=== PATIENT | male | born 1960 | race Caucasian/White ===

== ENCOUNTER → 2018-09-09 10:31 | Outpatient (CLI) | payer BC, OTHER, SELFPAY ==
--- NOTE | 2018-09-09 10:33 | ECHOD_ITS ---
Reason For Study: AVR Procedure This was a 2D Doppler, Color Flow transthoracic echocardiogram. Exam performed in department. Left Ventricle Normal LV size. Left ventricular systolic function is normal. The estimated ejection fraction is 58 %. Stage 1 diastolic dysfunction. No regional wall motion abnormalities noted. Right Ventricle Normal RV size. Normal systolic function. Atria Normal left atrium. Normal right atrium. Mitral Valve Normal mitral valve. Mild (1+) eccentric mitral valve insufficiency. Tricuspid Valve Normal tricuspid valve. Unable to estimate RV systolic pressure due to inadequate jet, pulmonary artery pressure probably normal. Aortic Valve Peak aortic valve gradient 21 mmHg. Mean aortic valve gradient 10 mmHg. Mild aortic stenosis. Calculated aortic valve area (continuity equation) is 1.6 cm2. Bioprosthetic aortic valve. Great Vessels Normal aortic root. The pulmonary artery is normal size. Normal inferior vena cava. Pericardium/Pleural No pericardial effusion. MMode/2D Measurements & Calculations LVIDd: 4.5 cm IVSd: 1.1 cm LVOT diam: 2.0 cm LVIDs: 3.2 cm LVPWd: 1.1 cm LVOT area: 3.0 cm2 FS: 29.2 % Ao root diam: 3.5 cm LAV(MOD-bp): 43.4 ml LA A4 area: 15.3 cm2 LA dimension: 3.1 cm LAV(MOD-bp) Indexed: 21.7 ml/m2 LAV(MOD-sp2): 48.9 ml LAV(MOD-sp4): 36.6 ml RA A4 area: 17.4 cm2 Time Measurements MV dec time: 0.21 sec Doppler Measurements & Calculations MV E max josr: 78.5 cm/sec Lat Peak E' Josr: 12.4 cm/sec Med Peak E' Josr: 8.6 cm/sec MV A max josr: 87.4 cm/sec E/E' lat: 6.3 E/E' med: 9.1 MV E/A: 0.90 MV V2 max: 91.8 cm/sec Ao V2 max: 233.0 cm/sec LV V1 max: 125.9 cm/sec MV max P.4 mmHg Ao max P.9 mmHg LV V1 max P.3 mmHg MV V2 mean: 55.5 cm/sec Ao V2 mean: 155.5 cm/sec LV V1 mean P.3 mmHg MV mean P.4 mmHg Ao mean P.8 mmHg LV V1 mean: 86.5 cm/sec MV V2 VTI: 21.1 cm Ao V2 VTI: 46.9 cm LV V1 VTI: 25.9 cm MVA(VTI): 3.7 cm2 DELMIS(I,D): 1.7 cm2 DELMIS(V,D): 1.6 cm2 SV(LVOT): 78.9 ml PA V2 max: 118.5 cm/sec MV P1/2t-pr_phl: 54.6 msec Interpretation Summary Normal LV size. Left ventricular systolic function is normal. The estimated ejection fraction is 58 %. Stage 1 diastolic dysfunction. Mild aortic stenosis. Mean aortic valve gradient 10 mmHg. Calculated aortic valve area (continuity equation) is 1.6 cm2. Compared to prior study, there is no significant change. Ordering Physician: Dean Hall Referring Physician: Gino Velasquez Performed By: Jena Chaney RVT, RDCS and Student
== END ==
PROVIDERS: Family Provider Family Medicine; PCP Family Medicine; Referring Provider Nurse Practitioner Family; Visit Provider Nurse Practitioner Family
DX: I35.0 Nonrheumatic aortic (valve) stenosis (principal); Z95.2 Presence of prosthetic heart valve
CPT/HCPCS: 93306

== ENCOUNTER → 2018-09-10 06:59 | Outpatient (CLI) | payer BC, OTHER, SELFPAY ==
[2018-09-10 10:04] LABS: Absolute Lymphocyte Count 2.24 X10^3/ul (0.83-4.51); Absolute Neutrophil Count 4.1 X10^3/uL (2.0-7.7); Basophil# 0.02 X10^3/uL; Basophil% 0.3 % (0-1); Eosinophil# 0.39 X10^3/uL; Eosinophils% 5.3 % (0-5); Hematocrit 45.9 % (40-54); Hemoglobin 15.4 g/dl (13.0-16.5); Lymphocyte # 2.24 X10^3/ul (4.0); Lymphocyte % 30.3 % (19-41); Mean Corp Hgb Conc 33.6 g/gl (32-36); Mean Corpuscular Hgb 30.8 pg (27.0-32.0); Mean Corpuscular Volume 91.8 fL (80-94); Mean Platelet Vol. 9.7 fl (6.2-12.0); Monocyte# 0.66 X10^3/uL; Monocyte% 8.9 % (0-10); Neutrophil # 4.08 X10^3/uL (2.7-7.7); Neutrophil % 55.1 % (47-70); Platelet Count 257 K/mm3 (150-450); RBC Distribution Width CV 13.6 % (11.6-14.6); RBC Distribution Width SD 45.4 fl (35.1-43.9); White Blood Count 7.4 K/mm3 (4.4-11.0)
[2018-09-10 10:11] LABS: POSITIVE COUNT NO; POSITIVE DIFFERENTIAL NO; POSITIVE MORPHOLOGY NO
[2018-09-10 10:35] LABS: AST(SGOT) 13 U/L (15-37); Alanine Aminotransfer ALT/SGPT 37 U/L (16-61); Albumin, Serum 3.9 g/dL (3.2-5.0); Alkaline Phosphatase 76 U/L (45-117); Anion Gap 8 (5-15); BUN 22 mg/dL (7-18); Calcium,Total 8.7 mg/dL (8.5-10.1); Chloride 107 mmol/L (98-107); Cholesterol 167 mg/dL (200); Creatinine, Serum 1.22 mg/dL (0.70-1.30); EST Glomerular Filtration Rate 65 mL/min (>60); Est Glom Filt Rate - Afr Amer 78 mL/min (>60); Globulin 3.8 g/dL (2.2-4.2); Glucose 84 mg/dL (74-106); High Density Lipoprotein 42 mg/dL; PSA,Total - Annual Screen 1.36 ng/mL (0.00-4.00); Potassium 4.1 mmol/L (3.5-5.1); Protein, Total 7.7 g/dL (6.4-8.2); Sodium Level 141 mmol/L (136-145); Triglycerides 77 mg/dL; Very Low Density Lipoprotein 15 mg/dL (5-40)
[2018-09-14 13:17] LABS: Testosterone, % Free 1.86 % (1.50-4.20); Testosterone, Total 554 ng/dL (264-916)
== END ==
PROVIDERS: Family Provider Family Medicine; PCP Family Medicine; Referring Provider Family Medicine; Visit Provider Family Medicine
DX: Z00.00 Encounter for general adult medical examination without abnormal findings (principal); N52.9 Male erectile dysfunction, unspecified; Z12.5 Encounter for screening for malignant neoplasm of prostate
CPT/HCPCS: 36415; 80053; 80061; 84153; 84402; 84403; 85025; G0103

== ENCOUNTER 2018-11-11 17:00 | Outpatient (RCR) | payer BC, OTHER, SELFPAY ==
--- NOTE | 2018-12-09 11:44 | HP.PT.NRP ---
HP - Discharge Summary (1) - Patient Information YOHANA GAVIRIA was seen in my office for initial evaluation on 11/02/18. The following Plan of Care was established for this patient: Initial Frequency: 1-2x /Week Initial Duration: 4-6 Weeks - Anticipated Interventions Patient/Client Instruction: Educate patient on: Condition, Plan of Care, Risk Factors For the Purpose of:: To improve decision making, To facilitate caregiver knowledge, To improve self management, To prevent re-injury, To improve ability to perform tasks related to life management, To improve tolerance to ADL's Therapeutic Exercise to Include: Strength training, Body mechanics, Postural training, Flexibilty training, Gait and locomotor training, Passive ROM, Active ROM For the Purpose of:: To decrease pain, To decrease swelling/inflammation, To increase ROM, To improve nutrient delivery to tissue, To increase oxygenation perfusion, To improve muscle performance and motor function, To improve ability to perform ADL's Manual Therapy Techniques to Include: Mobilization, Passive ROM, Functional dry needling, Soft tissue mobilization For the Purpose of:: To decrease pain, To improve nutrient delivery to tissue, To increase oxygenation perfusion, To improve gait and locomotor functions, To improve health of tissue, To decrease soft tissue restriction, To increase flexibility/ROM, To improve endurance IF ES: Yes Cryotherapy (ice pack, ice massage): Yes Ultrasound (thermal/non thermal): Yes For the Purpose of:: To decrease pain, To decrease swelling/inflammation, To increase ROM, To improve nutrient delivery to tissue, To increase oxygenation perfusion, To improve muscle performance and motor function This patient was last seen in our office 11/17/18. Pertinent comments regarding their Physical therapy will appear below: Pt. was seen for a few weeks in PT and will be DC from PT at this point in time. At this point I will be discontinuing this patient from physical therapy. I would be happy to see this patient again in the future if found appropriate by the physician. Thank you! Grayson Elkins, CORNELIO
== END 2018-11-11 19:00 | disposition home or self-care (01) ==
LOC: PT 17:00
PROVIDERS: Family Provider Family Medicine; PCP Family Medicine; Referring Provider Podiatrist; Visit Provider Podiatrist
DX: M72.2 Plantar fascial fibromatosis (principal); M79.671 Pain in right foot; M77.31 Calcaneal spur, right foot; M21.6X9 Other acquired deformities of unspecified foot; M21.41 Flat foot [pes planus] (acquired), right foot
CPT/HCPCS: 97035; 97110; 97140; 97161

== ENCOUNTER → 2018-11-24 | Outpatient (CLI) | payer BC, OTHER, SELFPAY ==
[2017-12-16 15:12] VITALS: BMI 27.1
--- NOTE | 2018-11-23 12:00 | COLBX_PTH ---
PATIENT: YOHANA GAVIRIA [facility] U#:[id number] AGE/SX: 58/M ROOM: RE11/24/[address]: Dr. Ignacio Beasley MD : 1960 BED: DIS: 11/24/2018 SPEC #: [id number] RECD: 11/24/18 15:23 STATUS: CHELSEA RECecilia #: [id number] ROSALIA: 11/23/18 12:[address]: Ignacio Beasley DEPT: SURGICAL PATHOLOGY RECD BY: Shay Quiroga ENTERED: 11/25/18 10:53 SP TYPE: COLON BX OT DR: Dr. Gino Velasquez, [facility] Tissues: Sigmoid colon biopsy Procedures: Surgery Specimen Level IV HEADER OPERATION: Colonoscopy with polypectomy PRE-OP DIAGNOSIS: High risk screening / polyp TISSUE SUBMITTED: Distal sigmoid polyp, rule out adenoma MICROSCOPIC DIAGNOSIS Distal sigmoid polyp, polypectomy: Tubular adenoma. SJ:ifeoma 11/26/18 MICROSCOPIC DESCRIPTION Slides are reviewed. GROSS DESCRIPTION Received in fixative is one container labeled with the patient's name and designated distal sigmoid. The specimen consists of a pink-red polyp measuring 1 x 0.5 x 0.5 cm. The apparent base is inked. The polyp is bisected and submitted entirely in one cassette. / SJ:rg 11/25/18 TC:1 CPT: 74495
== END | disposition home or self-care (01) ==
LOC: LABSPEC 15:56
PROVIDERS: Family Provider Family Medicine; PCP Family Medicine; Referring Provider Internal Medicine Gastroenterology; Visit Provider Internal Medicine Gastroenterology
DX: K63.5 Polyp of colon (principal); Z12.11 Encounter for screening for malignant neoplasm of colon
CPT/HCPCS: 88305

== ENCOUNTER → 2018-12-02 | Outpatient (CLI) | payer BC, OTHER, SELFPAY ==
--- NOTE | 2018-12-02 07:20 | MRI_ITS ---
STUDY: MRI RIGHT ANKLE WITHOUT CONTRAST REASON FOR EXAM: Male, 58 years old. Right calcaneal spur and heel pain TECHNIQUE: Standardized fat and water weighted pulse sequences were obtained in all 3 orthogonal planes. COMPARISON: None. FINDINGS: Normal subcutis adipose space. Normal posterior tibialis tendon. Normal flexor digitorum longus tendon. Normal flexor hallucis longus tendon. Normal peroneus longus and brevis tendons. Normal tibialis anterior tendon. Normal extensor hallucis longus tendon. Normal extensor digitorum longus tendons. Normal Achilles tendon and teno-osseous insertion. There is thickening and edema of the central cord of the plantar fascia with a partial plantar fascial tear. There is a plantar calcaneal spur with cancellous marrow edema consistent with a marrow stress phenomena. There is mild edema in the intrinsic muscles of the rear foot just deep to the plantar fascia. Normal distal tibiofibular syndesmotic ligamentous complex. Normal lateral ligamentous complex. Normal subtalar ligaments and sinus tarsi. Normal deltoid ligamentous complexes. Normal plantar calcaneonavicular (spring) ligament. Normal tibiotalar articulation. Normal talar dome. Normal subtalar articulations. Normal talonavicular articulation. Normal calcaneocuboid articulation. Normal navicular-cuneiform articulations. MRI/Lower Ext Joint Only (Routine) IMPRESSION: Thickening and edema of the central cord of the plantar fascia consistent with plantar fasciitis with partial plantar fascial tear. There is stress phenomenon of the plantar calcaneal marrow. Mild edema of the intrinsic muscles of the rear foot just deep to the plantar fascia. Electronically Signed: Kar Kimberly, at 9:58 EDT Tel , Service support ,
== END | disposition home or self-care (01) ==
LOC: MRI 07:08
PROVIDERS: Family Provider Family Medicine; PCP Family Medicine; Referring Provider Podiatrist; Visit Provider Podiatrist
DX: M72.2 Plantar fascial fibromatosis (principal); M79.671 Pain in right foot; M77.31 Calcaneal spur, right foot; M21.6X9 Other acquired deformities of unspecified foot; M21.41 Flat foot [pes planus] (acquired), right foot
CPT/HCPCS: 73721

== ENCOUNTER → 2019-07-21 10:08 | Outpatient (CLI) | payer BC, OTHER, SELFPAY ==
--- NOTE | 2019-07-21 10:29 | MRI_ITS ---
STUDY: MRI BRAIN WITH AND WITHOUT CONTRAST (ATTENTION INTERNAL AUDITORY CANALS - I.A.C.''s) REASON FOR EXAM: Male, 59 years old. assymetrical hearing loss,left -- tinnitus, no pain , some dizziness TECHNIQUE: Standardized multiplanar fat and water weighted pulse sequences were obtained. IV dotarem 18ml was administered for the contrast portion of the examination. COMPARISON: 03/10/2017 FINDINGS: Normal bilateral temporal bones. Normal bilateral internal auditory canals. There is no demonstrated intracanalicular or cisternal vestibular schwannoma (acoustic neuroma). There is no enhancement of the bilateral VIIth or VIIIth cranial nerves. Normal bilateral cochlea, vestibules and semicircular canals. Normal size of the ventricles and extra-axial spaces for the patient''s age. Normal white matter tracts of the supratentorial brain. There is no evidence for recent intracranial ischemia or other cause of cytotoxic edema on diffusion weighted imaging (DWI). Normal bilateral basal ganglia. Normal thalami. Normal flow voids within the major intracranial circulation suggesting patency by spin echo criteria. Normal venous enhancement. There is no enhancing intra-axial or extra-axial abnormality. There is no extra-axial fluid accumulation. Normal sella turcica, pituitary gland, infundibular stalk, optic chiasm and hypothalamus. Normal tectal plate and pineal gland. Normal midbrain, jeancarlos and medulla. Normal cerebellum. Normal basal cisterns. No demonstrated orbital abnormality, within the constraints of a routine brain study. Normal visualized paranasal sinuses. Normal calvarium and skull base. Normal visualized soft tissue structures. Normal visualized upper cervical spine. MRI/Brain W/WO Contrast IMPRESSION: Normal unenhanced and enhanced MRI of the bilateral internal auditory canals (I.A.C''s). Electronically Signed: Federico Reyes MD at 14:48 EDT Tel , Service support ,
== END ==
PROVIDERS: PCP Family Medicine; Referring Provider Family Medicine; Visit Provider Family Medicine
DX: H93.13 Tinnitus, bilateral (principal); H91.8X2 Other specified hearing loss, left ear; R42 Dizziness and giddiness; E34.8 Other specified endocrine disorders
CPT/HCPCS: 70553; A9575

== ENCOUNTER 2020-07-13 07:31 | Outpatient (RCR) | payer BC, OTHER, SELFPAY ==
[2020-03-01 15:45] VITALS: BMI 27.3
[2020-07-13] MEDS: COVID-19 VACC, MRNA(PFIZER)/PF 30 MCG/0.3 ML SYRINGE IM (14:57)
[2020-08-03] MEDS: COVID-19 VACC, MRNA(PFIZER)/PF 30 MCG/0.3 ML SYRINGE IM (14:49)
== END 2020-07-13 23:59 ==
LOC: IMMUN 07:31
PROVIDERS: PCP Family Medicine; Referring Provider Family Medicine; Visit Provider Family Medicine
DX: Z23 Encounter for immunization (principal)
CPT/HCPCS: 0001A; 0002A; 91300

== ENCOUNTER → 2022-01-14 | Outpatient (CLI) | payer BC, OTHER, SELFPAY ==
--- NOTE | 2022-01-14 12:41 | ECHOD_ITS ---
Reason For Study: HX AV REPLACEMENT Procedure This was a 2D Doppler, Color Flow transthoracic echocardiogram. Exam performed in department. Left Ventricle Normal LV size. Left ventricular systolic function is normal. The estimated ejection fraction is 60 %. No regional wall motion abnormalities noted. Right Ventricle Normal RV size. Normal systolic function. Atria Normal left atrium. Normal right atrium. Mitral Valve Normal mitral valve. Tricuspid Valve Normal tricuspid valve. Aortic Valve Peak aortic valve gradient 12 mmHg. Mean aortic valve gradient 6 mmHg. Stable appearing bioprosthetic aortic valve apparatus. Pulmonic Valve Normal pulmonic valve. Great Vessels Normal aortic root. The pulmonary artery is normal size. Normal inferior vena cava. Pericardium/Pleural No pericardial effusion. MMode/2D Measurements & Calculations LVIDd: 5.3 cm IVSd: 0.73 cm LVOT diam: 1.8 cm LVIDs: 3.7 cm FS: 31.5 % LVOT area: 2.5 cm2 RVDd: 3.6 cm Ao root diam: 3.6 cm LAV(MOD-bp): 58.5 ml LVAd ap4: 25.5 cm2 LAV(MOD-bp) Indexed: 29.6 ml/m2 LVLd ap4: 8.0 cm LAV(MOD-sp2): 60.2 ml EDV(MOD-sp4): 70.1 ml LAV(MOD-sp4): 58.1 ml EDV(sp4-el): 68.7 ml LVAs ap4: 15.9 cm2 LVLs ap4: 7.1 cm ESV(MOD-sp4): 35.8 ml ESV(sp4-el): 30.4 ml EF(MOD-sp4): 48.9 % EF(sp4-el): 55.7 % SV(MOD-sp4): 34.3 ml SV(sp4-el): 38.3 ml LA A4 area: 20.0 cm2 LA dimension(2D): 4.1 cm RA A4 area: 15.3 cm2 Time Measurements MV dec time: 0.24 sec Doppler Measurements & Calculations MV E max josr: 65.9 cm/sec Lat Peak E' Josr: 9.5 cm/sec Med Peak E' Josr: 7.1 cm/sec MV A max josr: 60.6 cm/sec E/E' lat: 6.9 E/E' med: 9.3 MV E/A: 1.1 MV V2 max: 75.4 cm/sec Ao V2 max: 172.3 cm/sec MV max P.3 mmHg MV dec slope: 276.5 cm/sec2 Ao max P.9 mmHg MV V2 mean: 46.5 cm/sec Ao V2 mean: 118.7 cm/sec MV mean P.99 mmHg Ao mean P.5 mmHg MV V2 VTI: 28.8 cm Ao V2 VTI: 34.8 cm MVA(VTI): 2.4 cm2 DELMIS(I,D): 2.0 cm2 DELMIS(V,D): 2.0 cm2 LV V1 max: 133.0 cm/sec SV(LVOT): 69.3 ml PA V2 max: 139.4 cm/sec LV V1 max P.2 mmHg PA V2 mean: 82.6 cm/sec LV V1 mean P.8 mmHg LV V1 mean: 91.0 cm/sec LV V1 VTI: 27.4 cm ECHO/Echo Complete Interpretation Summary Normal LV size. Left ventricular systolic function is normal. The estimated ejection fraction is 60 %. Stable appearing bioprosthetic aortic valve apparatus. Mean aortic valve gradient 6 mmHg. Ordering Physician: Dean Hall Referring Physician: Dean Hall Performed By: Anna Lopez RCS
== END | disposition home or self-care (01) ==
LOC: CVS 12:41
PROVIDERS: PCP Family Medicine; Referring Provider Nurse Practitioner Family; Visit Provider Nurse Practitioner Family
DX: Z95.2 Presence of prosthetic heart valve (principal)
CPT/HCPCS: 93306

== ENCOUNTER → 2022-03-09 | Outpatient (CLI) | payer BC, OTHER, SELFPAY ==
[2022-03-09 10:10] LABS: AST(SGOT) 25 U/L (15-37); Alanine Aminotransfer ALT/SGPT 37 U/L (16-61); Albumin, Serum 3.7 g/dL (3.2-5.0); Alkaline Phosphatase 66 U/L (45-117); Bilirubin, Direct 0.15 mg/dL (0.00-0.30); Cholesterol 197 mg/dL (200); Globulin 3.8 g/dL (2.2-4.2); High Density Lipoprotein 50 mg/dL; Protein, Total 7.5 g/dL (6.4-8.2); Triglycerides 73 mg/dL; Very Low Density Lipoprotein 15 mg/dL (5-40)
== END | disposition home or self-care (01) ==
LOC: LAB 08:51
PROVIDERS: PCP Family Medicine; Referring Provider Internal Medicine Cardiovascular Disease; Visit Provider Internal Medicine Cardiovascular Disease
DX: E78.00 Pure hypercholesterolemia, unspecified (principal)
CPT/HCPCS: 36415; 80061; 80076

== ENCOUNTER → 2022-12-09 | Outpatient (CLI) | payer BC, OTHER, SELFPAY ==
[2022-12-09 15:18] LABS: Absolute Lymphocyte Count 2.45 X10^3/uL (0.83-4.51); Absolute Neutrophil Count 6.1 X10^3/uL (2.0-7.7); Basophil# 0.05 X10^3/uL; Basophil% 0.5 % (0-1); Hematocrit 44.8 % (40-54); Hemoglobin 14.2 g/dL (13.0-16.5); Lymphocyte # 2.45 X10^3/ul (0.83-4.51); Lymphocyte % 24.6 % (19-41); Mean Corp Hgb Conc 31.7 g/dL (32-36); Mean Corpuscular Hgb 30.3 pg (27.0-32.0); Mean Corpuscular Volume 95.7 fL (80-94); Mean Platelet Vol. 9.3 fl (6.2-12.0); NRBC Flagged by Analyzer 0 % (0-5); Neutrophil # 6.11 X10^3/uL (2.7-7.7); Neutrophil % 61.5 % (47-70); Platelet Count 284 K/mm3 (150-450); RBC Distribution Width CV 13.2 % (11.6-14.6); RBC Distribution Width SD 46.5 fl (35.1-43.9); Red Blood Count 4.68 M/mm3 (4.6-6.2)
[2022-12-09 15:55] LABS: Anion Gap 4 (5-15); BUN 27 mg/dL (7-18); BUN/Creat Ratio 25.2 RATIO (10-20); Chloride 108 mmol/L (98-107); Creatinine, Serum 1.07 mg/dL (0.70-1.30); EST Glomerular Filtration Rate 74 mL/min (>60); Est Glom Filt Rate - Afr Amer 90 mL/min (>60); Glucose 92 mg/dL (74-106); PSA,Total - Annual Screen 1.59 ng/mL (0.00-4.00); Potassium 4.9 mmol/L (3.5-5.1); Sodium Level 139 mmol/L (136-145)
== END | disposition home or self-care (01) ==
PROVIDERS: PCP Family Medicine; Referring Provider Family Medicine; Visit Provider Family Medicine
DX: Z00.00 Encounter for general adult medical examination without abnormal findings (principal); Z12.5 Encounter for screening for malignant neoplasm of prostate
CPT/HCPCS: 36415; 80048; 84153; 85025; G0103

== ENCOUNTER → 2024-04-14 | Outpatient (CLI) | payer BC, OTHER, SELFPAY ==
--- NOTE | 2024-04-14 11:21 | RAD_ITS ---
EXAM: XR LUMBOSACRAL SPINE, 4 OR 5 VIEWS CLINICAL INDICATION: BACK PAIN TECHNIQUE: Frontal, lateral and bilateral oblique views of the lumbar spine. COMPARISON: No relevant prior studies available. FINDINGS: VERTEBRAE: Minimal spondylosis with mild marginal osteophytes L2-L3, L3-L4, and L4-L5. Preserved vertebral body height. No fracture. Preservation of the normal lumbar lordosis. No significant facet arthropathy. DISC SPACES: No acute findings. Disc spaces are maintained. GASTROINTESTINAL TRACT: Unremarkable as visualized. Included bowel gas pattern is non-obstructive. RAD/L/S Spine Min 4 Views IMPRESSION: Minimal spondylosis with mild marginal osteophytes L2-L3, L3-L4, and L4-L5. Electronically Signed: Chucky Warren MD at 1:36 EST ,
== END | disposition home or self-care (01) ==
LOC: MTRAD 11:20
PROVIDERS: PCP Family Medicine; Referring Provider Family Medicine; Visit Provider Family Medicine
DX: M54.50 Low back pain, unspecified (principal)
CPT/HCPCS: 72110

== ENCOUNTER → 2024-06-09 | Outpatient (CLI) | payer BC, OTHER, SELFPAY ==
--- NOTE | 2024-06-09 10:49 | ECHOD_ITS ---
Reason For Study: VALVE REPLACEMENT Procedure This was a 2D Doppler, Color Flow transthoracic echocardiogram. Exam performed in department. Left Ventricle Normal LV size. Left ventricular systolic function is normal. The left ventricular ejection fraction is 60 %. No regional wall motion abnormalities noted. Right Ventricle Normal RV size. Normal systolic function. Atria Normal left atrium. Normal right atrium. Mitral Valve Normal mitral valve. Aortic Valve Peak aortic valve gradient 20 mmHg. Mean aortic valve gradient 10 mmHg. Bioprosthetic aortic valve. Pulmonic Valve Normal pulmonic valve. Great Vessels Mild to moderately dilated aortic root. The pulmonary artery is normal size. Normal inferior vena cava. Pericardium/Pleural No pericardial effusion. MMode/2D Measurements & Calculations LVIDd: 4.2 cm IVSd: 1.0 cm LVOT diam: 2.0 cm LVIDs: 2.5 cm LVPWd: 0.93 cm LVOT area: 3.2 cm2 RVDd: 3.7 cm FS: 40.4 % _ asc Aorta Diam: 4.2 cm LAV(MOD-bp): 48.7 ml LVAd ap4: 21.7 cm2 LAV(MOD-bp) Indexed: 25.9 ml/m2 LVLd ap4: 7.4 cm LAV(MOD-sp2): 56.1 ml EDV(MOD- sp4): 52.4 ml LAV(MOD-sp4): 42.0 ml EDV(sp4- el): 53.9 ml LVAs ap4: 12.5 cm2 LVLs ap4: 6.2 cm ESV(MOD- sp4): 21.0 ml ESV(sp4- el): 21.6 ml EF(MOD- sp4): 60.0 % EF(sp4- el): 60.0 % _ SV(MOD-sp4): 31.5 ml SV(MOD- sp2): 41.2 ml LVAd ap2: 25.0 cm2 LVLd ap2: 7.5 cm SI(MOD-sp4): 16.7 ml/m2 SI(MOD- sp2): 21.9 ml/m2 EDV(MOD-sp2): 67.5 ml EDV(sp2-el): 70.5 ml LVAs ap2: 14.5 cm2 LVLs ap2: 6.6 cm ESV(MOD-sp2): 26.3 ml ESV(sp2-el): 27.0 ml EF(MOD-sp2): 61.0 % _ SV(sp4-el): 32.3 ml Ao sinus diam: 3.[address] Junction: 2.8 cm _ LA A4 area: 16.0 cm2 LA dimension(2D): 3.5 cm RA A4 area: 12.5 cm2 _ TAPSE: 1.3 cm Time Measurements MV dec time: 0.14 sec Doppler Measurements & Calculations MV E max josr: 67.3 cm/sec Lat Peak E' Josr: 11.5 cm/sec Med Peak E' Josr: 8.2 cm/sec MV A max josr: 83.7 cm/sec E/E' lat: 5.9 E/E' med: 8.2 MV E/A: 0.80 _ Ao V2 max: 221.0 cm/sec LV V1 max: 124.0 cm/sec MV dec slope: 465.1 cm/sec2 Ao max P.6 mmHg LV V1 max P.2 mmHg Ao V2 mean: 153.4 cm/sec LV V1 mean P.6 mmHg Ao mean P.6 mmHg LV V1 mean: 89.4 cm/sec Ao V2 VTI: 43.5 cm LV V1 VTI: 26.7 cm AV (velocity ratio): 0.61 DELMIS(I,D): 2.0 cm2 DELMIS(V,D): 1.8 cm2 _ SV(LVOT): 86.6 ml PA V2 max: 124.7 cm/sec TR max josr: 218.8 cm/sec TR max P.2 mmHg ECHO/Echo Complete Interpretation Summary Normal LV size. Left ventricular systolic function is normal. The left ventricular ejection fraction is 60 %. Bioprosthetic aortic valve. Mean aortic valve gradient 10 mmHg. Ordering Physician: Duncan Tyson Referring Physician: Gino Velasquez Performed By: Shea Gilmore RDCS
== END | disposition home or self-care (01) ==
LOC: CVS 10:48
PROVIDERS: PCP Family Medicine; Referring Provider Internal Medicine Cardiovascular Disease; Visit Provider Internal Medicine Cardiovascular Disease
DX: I35.2 Nonrheumatic aortic (valve) stenosis with insufficiency (principal)
CPT/HCPCS: 93306